=== PATIENT | male | born 1960 | race African-American/Black ===

== ENCOUNTER 2016-06-14 16:09 | Emergency (ER) | payer OTHER ==
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
[2016-06-14 18:13] VITALS: BP 157/92
--- NOTE | 2016-06-15 08:08 | Diag Imaging Result Document ---
PROCEDURE NAME: LUMBAR SPINE 2-VIEWS - 06/14/2016 LUMBAR SPINE, 2 VIEWS: FINDINGS: There has been posterior fusion at L5-S1. The pedicles are otherwise intact. There is narrowing of the L4-5, L5-S1 and the S1-2 disk space. IMPRESSION: Postsurgical changes. No evidence of acute disease.
--- NOTE | 2016-06-15 08:08 | Diag Imaging Result Document ---
PROCEDURE NAME: CERVICAL SPINE 2-VIEWS - 06/14/2016 CERVICAL SPINE 2 VIEWS: FINDINGS: The majority of the cervical spine at least that below the level of C3 is not well demonstrated on the cross-table lateral view. On the AP view there is curvature of the cervical spine with convexity to the right. There has been anterior fusion at C5, 6 and 7. IMPRESSION: Postsurgical changes. Curvature of the cervical spine. Suboptimal study as described above.
== END 2016-06-14 18:17 | disposition home or self-care (01) ==
LOC: EDBD → ED 16:09
DX: S39.012A Strain of muscle, fascia and tendon of lower back, initial encounter (principal); M54.5 Low back pain; R20.2 Paresthesia of skin; F17.210 Nicotine dependence, cigarettes, uncomplicated; V49.40XA Driver injured in collision with unspecified motor vehicles in traffic accident, initial encounter
CPT/HCPCS: 72040; 72100